=== PATIENT | female | born 1990 | race Caucasian/White ===

== ENCOUNTER 2016-11-22 15:25 | Emergency (ER) | payer OTHER ==
[~2016-11-22] VITALS: Ht 162.6 cm; Wt 55.0 kg
[~2016-11-22 15:25] MED LIST: NAPR-260 PO; TRAM50TA2 PO
[2016-11-22 15:44] VITALS: Ht 162.6 cm; Wt 55.0 kg
[2016-11-22 17:04] LABS: URINE BLOOD (Dip) POC 3+ (NEGATIVE)
[2016-11-22] MEDS ORDERED: NITR-58 PO (17:17)
--- NOTE | 2016-11-22 17:23 | ERD ---
ER Documentation Chief Complaint Date/Time DATE: 11/22/16 TIME: 17:20 Chief Complaint dysuria and r side inguinal pain HPI This is a 26-year-old female who presents to the ER with urinary frequency and dysuria with hematuria that started 2 days ago. Patient denies any fevers or chills. She denies any nausea vomiting or diarrhea. She denies any vaginal discharge. Patient complains of right-sided inguinal pain as well. She has had this inguinal pain for over 3 months yesterday pain became worse. Pain is intermittent. It is described as a stabbing pain. She was seen here for this pain and ultrasound was done which was all normal. ROS 12 point review of systems was done, all negative except per HPI. Medications Home Meds Active Scripts Nitrofurantoin Monohyd Macrocr* (Macrobid*) 100 Mg Capsr, 100 MG PO BID for 7 Days, CAP Prov:MARTÍN MCFARLANE 11/22/16 Tramadol HCl (Tramadol HCl) 50 Mg Tablet, 50 MG PO Q4 Y for PAIN, #20 TAB Prov:JYOTI VARELA PA-C 09/03/16 Naproxen* (Naprosyn*) 500 Mg Tablet, 500 MG PO BID Y for PAIN AND/OR INFLAMMATION, #30 TAB Prov:JYOTI VARELA PA-C 09/03/16 Allergies Allergies: Coded Allergies: No Known Allergy (Unverified , 11/04/13) PMhx/Soc Medical and Surgical Hx: pt denies Medical Hx, pt denies Surgical Hx Hx Alcohol Use: No Hx Substance Use: No Hx Tobacco Use: No Smoking Status: Never smoker Physical Exam Vitals Vital Signs Date Time Temp Pulse Resp B/P Pulse Ox O2 Delivery O2 Flow Rate FiO2 11/22/16 15:44 98.6 83 18 110/57 100 Physical Exam GENERAL: The patient is well developed and appropriate for usual state of health , in no apparent distress. HEENT: Atraumatic. CHEST: Clear to auscultation bilaterally. There are no rales, wheezes or rhonchi. HEART: Regular rate and rhythm. No murmurs, clicks, rubs or gallops. ABDOMEN: Soft, nontender and nondistended. Good bowel sounds. No rebound or guarding. No gross peritonitis. No gross organomegaly or masses. No Palumbo sign or McBurney point tenderness. Patient has painful lymph node in the right inguinal canal. Results 24 hrs Laboratory Tests Test 11/22/16 17:08 Bedside Urine Blood 3+ Bedside Urine Glucose (UA) Negative Bedside Urine Ketones (LAB) Negative Bedside Urine Leukocyte Esterase (L 1+ Bedside Urine Nitrite (LAB) Positive Bedside Urine Protein (LAB) Negative Bedside Urine pH (LAB) 6.5 Procedures/MDM This is a 26-year-old female presents to the ER with urinary frequency and dysuria. Patient does have a urinary tract infection. Regards to patient's right inguinal pain that she does have a swollen hard lymph node. I do not believe the patient has acute abdomen as she has had this pain for months now. Pain has been intermittent, not patient has a urinary tract infection may have swelled up again. Patient recently had an ultrasound do not believe that we need to repeat ultrasound at this time suspicion for ovarian torsion is low. Patient is afebrile and well-appearing. Her physical examination is benign. She will be sent home with Macrobid. She is to follow-up with her primary care doctor within 1-2 days or return to ER sooner if symptoms worsen. My medical decision making assured with the patient understands and agrees with plan. Departure Diagnosis: Primary Impression: UTI (urinary tract infection) Condition: Stable Patient Instructions: Understanding Urinary Tract Infections (UTIs) Additional Instructions: Llame al doctor SRIDHAR y sheila luz RIP PARA DENTRO DE 1-2 SANDOVAL.Dgale a la secretaria que nosotros le instruimos hacer esta rip.Avise o llame si marion condicin se empeora antes de la rip. Regresa aqui si peor o no mejor. MARTÍN MCFARLANE Nov 22, 2016 17:22
== END 2016-11-22 17:26 | disposition home or self-care (01) ==
LOC: FTE 15:25
DX: N39.0 Urinary tract infection, site not specified (principal); R10.2 Pelvic and perineal pain
CPT/HCPCS: 81003; Z7502; 99283